=== PATIENT | female | born 2000 ===

== ENCOUNTER 2023-03-19 10:43 | Outpatient (CLI) | payer OTHER, SELFPAY ==
[2023-03-19 23:59] LABS: Chlamydia DNA Amplified* NOT DETECTED (No Detected); GC DNA Amplified* NOT DETECTED (No Detected)
== END 2023-03-19 10:44 | disposition home or self-care (01) ==
LOC: NFLDUCREF 10:43
PROVIDERS: Visit Provider Physician Assistant
DX: Z11.3 Encounter for screening for infections with a predominantly sexual mode of transmission (principal)
CPT/HCPCS: 87491; 87591